=== PATIENT | male | born 1940 | race Caucasian/White ===

== ENCOUNTER 2020-07-16 13:45 | Inpatient (IN) ==
[2020-07-16] MEDS ORDERED: ACETAMINOPHEN 325 MG TABLET PO PRN (16:11)
[2020-07-16] MEDS ORDERED: diphenhydrAMINE CAP 25 MG CAPSULE PO PRN (16:11)
[2020-07-16] MEDS ORDERED: SIMETHICONE CHEW 125 MG TABLET PO PRN (16:11)
[2020-07-16] MEDS ORDERED: DOCUSATE SODIUM 100 MG CAPSULE PO PRN (16:11)
[2020-07-16] MEDS ORDERED: MAGNESIUM SULF RIDER 2 GM in PREMIX 1 EACH IV PRN ×2 (16:11→16:17)
[2020-07-16] MEDS ORDERED: MORPHINE 4 MG/1 ML VIAL IV PRN (16:11)
[2020-07-16] MEDS ORDERED: ONDANSETRON 4 MG/2 ML VIAL IV PRN (16:11)
[2020-07-16] MEDS ORDERED: MAGNESIUM SULF RIDER 4 GM in PREMIX 1 EACH IV PRN (16:11)
[2020-07-16] MEDS ORDERED: ZALEPLON 5 MG CAPSULE PO PRN (16:11)
[2020-07-16] MEDS ORDERED: POTASSIUM CHLORIDE RIDER 10 MEQ in PREMIX 1 EACH IV PRN (16:17)
[2020-07-16 16:35] LABS: Basophils % 0.2 % (0.0-0.8); Eosinophils # 0.4 10*3/uL (0.0-0.87); Eosinophils % 4.5 % (0.00-10.9); Hematocrit 30.9 VOL% (42.0-52.0); Hemoglobin 9.6 GM/DL (14.0-18.0); Immature Granulocytes % 0.7 %; Immature Granulocytes Absolute 0.07 #; Lymphocytes # 1.5 10*3/uL (1.4-4.0); Lymphocytes % 15.5 % (21.2-54.2); Mean Corpuscular HGB Conc 31.1 GM/DL (32-36); Mean Corpuscular Volume 93.6 FL (87-102); Mean Platelet Volume 9.1 FL (9.6-12.0); Neutrophils % 73.1 % (38.7-73.9); Platelet Count 187 T/CUMM (130-400); Red Cell Distribution Width 15.9 % (9.3-17.3); White Blood Count 9.7 T/CUMM (4-12)
[2020-07-16 16:49] LABS: Alanine Aminotransferase 20 U/L (16-61); Albumin 3.1 G/DL (3.4-5.0); Alkaline Phosphatase 105 U/L (45-117); Aspartate Amino Transferase 15 U/L (0-37); Bilirubin,Total < 0.39 MG/DL (0.2-1.0); Blood Urea Nitrogen 44 MG/DL (7-18); Calcium 8.5 MG/DL (8.5-10.1); Carbon Dioxide 22 MMOL/L (21-32); Estimated Glom Filtration Rate 20 ML/MIN; Glucose 113 MG/DL (74-106); Osmolality,Calculated 292.3 MOS/KG (273-304); Potassium 5.7 MMOL/L (3.5-5.1); Sodium 141 MMOL/L (136-145)
[2020-07-16] MEDS: ASPIRIN EC 81 MG TABLET PO SCH (20:36)
[2020-07-16] MEDS: SIMVASTATIN 20 MG TABLET PO SCH (20:36)
[2020-07-16] MEDS: amLODIPine 5 MG TABLET PO SCH (20:37)
[2020-07-17 05:05] LABS: Basophils % 0.1 % (0.0-0.8); Eosinophils # 0.4 10*3/uL (0.0-0.87); Eosinophils % 4.1 % (0.00-10.9); Hematocrit 29.5 VOL% (42.0-52.0); Hemoglobin 9.1 GM/DL (14.0-18.0); Immature Granulocytes % 0.6 %; Immature Granulocytes Absolute 0.05 #; Lymphocytes # 1.6 10*3/uL (1.4-4.0); Lymphocytes % 17.2 % (21.2-54.2); Mean Corpuscular HGB Conc 30.8 GM/DL (32-36); Mean Corpuscular Volume 94.6 FL (87-102); Mean Platelet Volume 9.4 FL (9.6-12.0); Monocytes % 7.1 % (1.7-12.7); Neutrophils % 70.9 % (38.7-73.9); Platelet Count 177 T/CUMM (130-400); Red Blood Count 3.12 MC/CUMM (3.8-5.5)
[2020-07-17 05:22] LABS: Albumin 2.8 G/DL (3.4-5.0); Bilirubin,Total 0.7 MG/DL (0.2-1.0); Calcium 8.7 MG/DL (8.5-10.1); Total Protein 6.5 G/DL (6.4-8.2)
[2020-07-17] MEDS: SODIUM CHLORIDE 0.45% 1,000 ML IV SCH ×2 (06:01→10:22)
[2020-07-17] MEDS ORDERED: diphenhydrAMINE CAP 25 MG CAPSULE PO ONE (07:00)
[2020-07-17] MEDS ORDERED: DIAZEPAM 5 MG TABLET PO ONE (07:00)
[2020-07-17] MEDS: CLOPIDOGREL 75 MG TABLET PO SCH (08:46)
[2020-07-17] MEDS: LEVOTHYROXINE 125 MCG TABLET PO SCH (08:46)
[2020-07-17] MEDS: ISOSORBIDE MONONITRATE 60 MG TABLET PO SCH (08:46)
[2020-07-17] MEDS: PANTOPRAZOLE 40 MG TABLET PO SCH (08:46)
[2020-07-17] MEDS ORDERED: OLMESARTAN 5 MG TABLET PO SCH (09:00)
[2020-07-17 11:27] LABS: Basophils % 0.2 % (0.0-0.8); Eosinophils # 0.3 10*3/uL (0.0-0.87); Eosinophils % 3.8 % (0.00-10.9); Hematocrit 29.6 VOL% (42.0-52.0); Hemoglobin 9.2 GM/DL (14.0-18.0); Immature Granulocytes % 0.7 %; Immature Granulocytes Absolute 0.06 #; Lymphocytes # 1.5 10*3/uL (1.4-4.0); Lymphocytes % 17.7 % (21.2-54.2); Mean Corpuscular HGB Conc 31.1 GM/DL (32-36); Mean Platelet Volume 9.4 FL (9.6-12.0); Monocytes % 5.4 % (1.7-12.7); Neutrophils % 72.2 % (38.7-73.9); Platelet Count 172 T/CUMM (130-400); Red Blood Count 3.15 MC/CUMM (3.8-5.5); Red Cell Distribution Width 15.9 % (9.3-17.3); White Blood Count 8.2 T/CUMM (4-12)
[2020-07-17 12:05] LABS: Eosinophils 3 % (0-10); Hypochromasia Slight; Lymphocytes 14 % (20-55); Microcytosis 1+; Nucleated Red Blood Cells 2 (0-5); Segmented Neutrophils 80 % (50-85); Total Cells Counted 100
[2020-07-17 12:06] LABS: Platelet Estimate Adequate
[2020-07-17 12:13] LABS: % Iron Saturation 11.8 % (18-50); Ferritin 139.1 ng/ml (26-388)
[2020-07-17 12:14] LABS: Folate > 24.0 NG/ML (5.38-24.0); Vitamin B12 506 PG/ML (211-911)
[2020-07-17 12:50] LABS: Bilirubin,Urine Negative (Negative); Blood, Urine Negative (Negative); Glucose,Urine (UA) 50 mg/dL (Negative); Hyaline Casts,Urine 1 /LPF (0-3); Ketones,Urine Negative (Negative); Nitrite,Urine Negative (Negative); Protein,Urine >=500 MG/DL; RBC,Urine 1 /HPF (0-4); Squamous Epithelial Cell,Urine Occasional /HPF (0-10); Urine Appearance CLEAR (Clear); Urine Color Yellow (Yellow); Urine Specific Gravity 1.015 (1.001-1.035); Urine Urobilinogen < 2.0 EU/DL (0.2-1.0); WBC,Urine 1 /HPF (0-6)
[2020-07-17] MEDS: ENOXAPARIN 30 MG/0.3 ML SYRINGE SUBCUT SCH (13:11)
[2020-07-17] MEDS: hydrALAZINE 25 MG TABLET PO SCH ×3 (13:11→20:44)
[2020-07-17] MEDS: ACETYLCYSTEINE 600 MG CAPSULE PO SCH ×2 (15:22→20:44)
[2020-07-17] MEDS: SODIUM BICARB INJ 50 MEQ in SODIUM CHLORIDE 0.45% 1,000 ML IV SCH (15:22)
[2020-07-17] MEDS: amLODIPine 5 MG TABLET PO SCH (20:44)
[2020-07-17] MEDS: ASPIRIN EC 81 MG TABLET PO SCH (20:44)
[2020-07-17] MEDS: SIMVASTATIN 20 MG TABLET PO SCH (20:45)
[2020-07-18 05:15] LABS: Basophils % 0.5 % (0.0-0.8); Eosinophils # 0.5 10*3/uL (0.0-0.87); Eosinophils % 5.8 % (0.00-10.9); Hematocrit 31.4 VOL% (42.0-52.0); Hemoglobin 9.8 GM/DL (14.0-18.0); Immature Granulocytes % 0.8 %; Immature Granulocytes Absolute 0.06 #; Lymphocytes # 1.7 10*3/uL (1.4-4.0); Lymphocytes % 21.8 % (21.2-54.2); Mean Corpuscular HGB Conc 31.2 GM/DL (32-36); Mean Corpuscular Volume 93.5 FL (87-102); Monocytes % 6.5 % (1.7-12.7); Neutrophils % 64.6 % (38.7-73.9); Platelet Count 181 T/CUMM (130-400); Red Blood Count 3.36 MC/CUMM (3.8-5.5); Red Cell Distribution Width 15.9 % (9.3-17.3); White Blood Count 7.9 T/CUMM (4-12)
[2020-07-18 05:37] LABS: Calcium 8.8 MG/DL (8.5-10.1); Osmolality,Calculated 294.8 MOS/KG (273-304); Potassium 5.4 MMOL/L (3.5-5.1)
[2020-07-18] MEDS ORDERED: LORazepam 2 MG/1 ML VIAL IV ONE (08:00)
[2020-07-18] MEDS: hydrALAZINE 25 MG TABLET PO SCH ×3 (08:40→21:45)
[2020-07-18] MEDS: PANTOPRAZOLE 40 MG TABLET PO SCH (08:40)
[2020-07-18] MEDS: ISOSORBIDE MONONITRATE 60 MG TABLET PO SCH (08:40)
[2020-07-18] MEDS: CLOPIDOGREL 75 MG TABLET PO SCH (08:40)
[2020-07-18] MEDS: LEVOTHYROXINE 125 MCG TABLET PO SCH (08:40)
[2020-07-18] MEDS: ACETYLCYSTEINE 600 MG CAPSULE PO SCH ×2 (08:40→21:45)
[2020-07-18] MEDS ORDERED: MAGNESIUM SULF RIDER 2 GM in PREMIX 1 EACH IV PRN (10:53)
[2020-07-18] MEDS ORDERED: POTASSIUM CHLORIDE RIDER 10 MEQ in PREMIX 1 EACH IV PRN (10:53)
[2020-07-18] MEDS: SODIUM BICARB INJ 50 MEQ in SODIUM CHLORIDE 0.45% 1,000 ML IV SCH (11:57)
[2020-07-18] MEDS: ENOXAPARIN 30 MG/0.3 ML SYRINGE SUBCUT SCH (11:58)
[2020-07-18] MEDS: ASPIRIN EC 81 MG TABLET PO SCH (21:45)
[2020-07-18] MEDS: amLODIPine 5 MG TABLET PO SCH (21:45)
[2020-07-18] MEDS: SIMVASTATIN 20 MG TABLET PO SCH (21:49)
[2020-07-19 05:23] LABS: Basophils % 0.4 % (0.0-0.8); Eosinophils # 0.4 10*3/uL (0.0-0.87); Eosinophils % 5.5 % (0.00-10.9); Hematocrit 31.1 VOL% (42.0-52.0); Hemoglobin 9.9 GM/DL (14.0-18.0); Immature Granulocytes % 0.5 %; Immature Granulocytes Absolute 0.04 #; Lymphocytes # 1.5 10*3/uL (1.4-4.0); Lymphocytes % 19.6 % (21.2-54.2); Mean Corpuscular HGB Conc 31.8 GM/DL (32-36); Mean Corpuscular Volume 90.9 FL (87-102); Mean Platelet Volume 9.4 FL (9.6-12.0); Monocytes % 5.8 % (1.7-12.7); Neutrophils % 68.2 % (38.7-73.9); Platelet Count 176 T/CUMM (130-400); Red Blood Count 3.42 MC/CUMM (3.8-5.5); Red Cell Distribution Width 15.9 % (9.3-17.3); White Blood Count 7.4 T/CUMM (4-12)
[2020-07-19 05:48] LABS: Calcium 8.7 MG/DL (8.5-10.1); Potassium 5.1 MMOL/L (3.5-5.1)
[2020-07-19] MEDS: PANTOPRAZOLE 40 MG TABLET PO SCH (09:10)
[2020-07-19] MEDS: CLOPIDOGREL 75 MG TABLET PO SCH (09:10)
[2020-07-19] MEDS: ISOSORBIDE MONONITRATE 60 MG TABLET PO SCH (09:10)
[2020-07-19] MEDS: ACETYLCYSTEINE 600 MG CAPSULE PO SCH ×2 (09:10→20:23)
[2020-07-19] MEDS: LEVOTHYROXINE 125 MCG TABLET PO SCH (09:10)
[2020-07-19] MEDS: hydrALAZINE 25 MG TABLET PO SCH (09:10)
[2020-07-19] MEDS: SODIUM BICARB INJ 50 MEQ in SODIUM CHLORIDE 0.45% 1,000 ML IV SCH (09:11)
[2020-07-19] MEDS: ENOXAPARIN 30 MG/0.3 ML SYRINGE SUBCUT SCH (12:32)
[2020-07-19] MEDS ORDERED: DIAZEPAM 5 MG TABLET PO ONE (13:00)
[2020-07-19] MEDS ORDERED: diphenhydrAMINE CAP 50 MG CAPSULE PO ONE (13:00)
[2020-07-19] MEDS ORDERED: LIDOCAINE 1% 20 ML VIAL ONE (13:52)
[2020-07-19] MEDS ORDERED: HEPARIN/NACL 0.9% 2 UNITS/ML 1,000 ML IV ONE (13:52)
[2020-07-19] MEDS ORDERED: MIDAZOLAM 2 MG/2 ML VIAL ONE ×3 (15:05→15:29)
[2020-07-19] MEDS ORDERED: fentaNYL 100 MCG/2 ML VIAL ONE ×2 (15:05→15:29)
[2020-07-19] MEDS ORDERED: NITROGLYCERIN SL 0.4 MG TABLET SL PRN (15:55)
[2020-07-19] MEDS: ASPIRIN EC 81 MG TABLET PO SCH (20:23)
[2020-07-19] MEDS: SIMVASTATIN 20 MG TABLET PO SCH (20:23)
[2020-07-19] MEDS: amLODIPine 5 MG TABLET PO SCH (20:23)
[2020-07-20 06:19] LABS: Basophils % 0.4 % (0.0-0.8); Eosinophils # 0.4 10*3/uL (0.0-0.87); Eosinophils % 5.7 % (0.00-10.9); Hematocrit 31.4 VOL% (42.0-52.0); Hemoglobin 10.1 GM/DL (14.0-18.0); Immature Granulocytes % 0.4 %; Immature Granulocytes Absolute 0.03 #; Lymphocytes # 1.3 10*3/uL (1.4-4.0); Mean Corpuscular HGB Conc 32.2 GM/DL (32-36); Mean Corpuscular Volume 91.3 FL (87-102); Mean Platelet Volume 9.6 FL (9.6-12.0); Monocytes % 7.1 % (1.7-12.7); Neutrophils % 69.4 % (38.7-73.9); Platelet Count 176 T/CUMM (130-400); Red Blood Count 3.44 MC/CUMM (3.8-5.5); Red Cell Distribution Width 15.9 % (9.3-17.3); White Blood Count 7.7 T/CUMM (4-12)
[2020-07-20 07:23] LABS: Calcium 8.8 MG/DL (8.5-10.1)
[2020-07-20] MEDS: LEVOTHYROXINE 125 MCG TABLET PO SCH (07:41)
[2020-07-20] MEDS: SODIUM BICARB INJ 50 MEQ in SODIUM CHLORIDE 0.45% 1,000 ML IV SCH (07:41)
[2020-07-20 07:53] VITALS: BP 147/68
[2020-07-20] MEDS: ISOSORBIDE MONONITRATE 60 MG TABLET PO SCH (08:35)
[2020-07-20] MEDS: PANTOPRAZOLE 40 MG TABLET PO SCH (08:36)
[2020-07-20] MEDS: CLOPIDOGREL 75 MG TABLET PO SCH (08:36)
[2020-07-20] MEDS: ACETYLCYSTEINE 600 MG CAPSULE PO SCH (08:36)
== END 2020-07-20 10:50 | disposition home or self-care (01) | DRG 287 ==
LOC: INTOOBSV 15:34 → N.TELES 15:34
PROVIDERS: ADMIT Internal Medicine Cardiovascular Disease; ATTEND Internal Medicine Cardiovascular Disease

== ENCOUNTER 2021-04-28 20:01 | Inpatient (IN) ==
[2021-04-28 20:49] LABS: Basophils % 0.3 % (0.0-0.8); Eosinophils # 0.3 10*3/uL (0.0-0.87); Eosinophils % 1.8 % (0.00-10.9); Hematocrit 27.1 VOL% (42.0-52.0); Hemoglobin 8.4 GM/DL (14.0-18.0); Immature Granulocytes % 0.7 %; Lymphocytes # 0.7 10*3/uL (1.4-4.0); Lymphocytes % 5.4 % (21.2-54.2); Mean Corpuscular Volume 90.9 FL (87-102); Monocytes % 4.6 % (1.7-12.7); NRBC # 0.02 10*3/uL; Neutrophils % 87.2 % (38.7-73.9); Platelet Count 262 T/CUMM (130-400); Red Blood Count 2.98 MC/CUMM (3.8-5.5); Red Cell Distribution Width 14.4 % (9.3-17.3); White Blood Count 13.6 T/CUMM (4-12)
[2021-04-28 21:05] LABS: PT Patient Result 11.3 SECS (10.5-12.0); Partial Thromboplastin Time 26.9 SECS (23.8-32.1)
[2021-04-28 21:06] LABS: Calcium 8.1 MG/DL (8.5-10.1); Osmolality,Calculated 299.1 MOS/KG (273-304); Potassium 4.7 MMOL/L (3.5-5.1)
[2021-04-28] MEDS ORDERED: NICOTINE 21 MG/24 HR PATCH TRANSDERM PRN (23:13)
[2021-04-28] MEDS ORDERED: guaiFENesin/DM ER 600-30 MG TABLET PO PRN (23:13)
[2021-04-28] MEDS ORDERED: DEXTROSE 10% 250 ML BAG IV PRN (23:13)
[2021-04-28] MEDS ORDERED: hydrALAZINE 20 MG/1 ML VIAL IV PRN (23:13)
[2021-04-28] MEDS ORDERED: MORPHINE 2 MG/1 ML SYRINGE IV PRN (23:13)
[2021-04-28] MEDS ORDERED: GLUCAGON 1 MG VIAL IM PRN (23:13)
[2021-04-28] MEDS: SODIUM CHLORIDE 0.9% 1,000 ML IV SCH (23:40)
[2021-04-28] MEDS: ONDANSETRON 4 MG/2 ML VIAL IV PRN (23:42)
[2021-04-29 00:18] LABS: Bilirubin,Urine Negative (Negative); Blood, Urine Small mg/dL (Negative); Glucose,Urine (UA) 50 mg/dL (Negative); Hyaline Casts,Urine 1 /LPF (0-3); Ketones,Urine Negative (Negative); Mucus,Urine Occasional /LPF (Occasional); Nitrite,Urine Negative (Negative); Protein,Urine >=500 MG/DL; RBC,Urine 25 /HPF (0-4); Squamous Epithelial Cell,Urine Occasional /HPF (0-10); Urine Appearance Slightly Hazy (Clear); Urine Color Yellow (Yellow); Urine Specific Gravity 1.019 (1.001-1.035); Urine Urobilinogen < 2.0 EU/DL (<2.0)
[2021-04-29] MEDS: ACETAMINOPHEN 325 MG TABLET PO PRN ×2 (05:00→21:05)
[2021-04-29 06:03] LABS: Basophils % 0.2 % (0.0-0.8); Eosinophils % 0.1 % (0.00-10.9); Hematocrit 24.8 VOL% (42.0-52.0); Hemoglobin 7.9 GM/DL (14.0-18.0); Immature Granulocytes % 0.5 %; Immature Granulocytes Absolute 0.05 #; Lymphocytes # 0.8 10*3/uL (1.4-4.0); Lymphocytes % 7.5 % (21.2-54.2); Mean Corpuscular HGB Conc 31.9 GM/DL (32-36); Mean Corpuscular Volume 90.5 FL (87-102); Mean Platelet Volume 9.2 FL (9.6-12.0); Neutrophils % 84.7 % (38.7-73.9); Platelet Count 251 T/CUMM (130-400); Red Blood Count 2.74 MC/CUMM (3.8-5.5); Red Cell Distribution Width 14.5 % (9.3-17.3); White Blood Count 10.7 T/CUMM (4-12)
[2021-04-29 06:31] LABS: Albumin 2.5 G/DL (3.4-5.0); Bilirubin,Total 0.6 MG/DL (0.20-1.00); Calcium 8.3 MG/DL (8.5-10.1); Potassium 5.1 MMOL/L (3.5-5.1); Total Protein 6.4 G/DL (6.4-8.2)
[2021-04-29] MEDS ORDERED: MORPHINE 2 MG/1 ML SYRINGE IV PRN (07:28)
[2021-04-29] MEDS: MORPHINE 2 MG/1 ML SYRINGE IV PRN ×3 (08:01→20:00)
[2021-04-29] MEDS: PANTOPRAZOLE 40 MG TABLET PO SCH (08:01)
[2021-04-29] MEDS: cefTRIAXone 1,000 MG in SODIUM CHLORIDE 0.9% 100 ML IV SCH (08:02)
[2021-04-29] MEDS: AZITHROMYCIN INJ 500 MG in SODIUM CHLORIDE 0.9% 250 ML IV SCH (09:15)
[2021-04-29] MEDS ORDERED: NITROGLYCERIN SL 0.4 MG TABLET SL PRN (09:39)
[2021-04-29] MEDS: ISOSORBIDE MONONITRATE 60 MG TABLET PO SCH (10:25)
[2021-04-29] MEDS: ASPIRIN EC 81 MG TABLET PO SCH (15:00)
[2021-04-29] MEDS: SODIUM CHLORIDE 0.9% 1,000 ML IV SCH (17:50)
[2021-04-29] MEDS ORDERED: ASPIRIN EC 81 MG TABLET PO SCH (21:00)
[2021-04-29] MEDS: SIMVASTATIN 20 MG TABLET PO SCH (21:05)
[2021-04-29] MEDS: ZALEPLON 5 MG CAPSULE PO PRN ×2 (21:05→23:07)
[2021-04-29] MEDS: amLODIPine 5 MG TABLET PO SCH (21:05)
[2021-04-29] MEDS: DEXAMETHASONE 4 MG TABLET PO SCH (21:05)
[2021-04-30 05:25] LABS: Basophils % 0.1 % (0.0-0.8); Hemoglobin 7.5 GM/DL (14.0-18.0); Immature Granulocytes % 0.7 %; Lymphocytes # 0.7 10*3/uL (1.4-4.0); Lymphocytes % 4.7 % (21.2-54.2); Mean Corpuscular HGB Conc 31.3 GM/DL (32-36); Mean Corpuscular Volume 91.6 FL (87-102); Mean Platelet Volume 9.3 FL (9.6-12.0); Monocytes % 5.8 % (1.7-12.7); Neutrophils % 88.7 % (38.7-73.9); Platelet Count 225 T/CUMM (130-400); Red Blood Count 2.62 MC/CUMM (3.8-5.5); Red Cell Distribution Width 14.4 % (9.3-17.3); White Blood Count 13.7 T/CUMM (4-12)
[2021-04-30 05:42] LABS: Folate 9.7 NG/ML (5.38-24.0)
[2021-04-30 05:49] LABS: Calcium 8.7 MG/DL (8.5-10.1); Osmolality,Calculated 294.3 MOS/KG (273-304); Potassium 4.9 MMOL/L (3.5-5.1)
[2021-04-30 05:50] LABS: Calcium 8.7 MG/DL (8.5-10.1); Osmolality,Calculated 294.3 MOS/KG (273-304); Potassium 4.9 MMOL/L (3.5-5.1)
[2021-04-30 05:51] LABS: % Iron Saturation 5.9 % (18-50)
[2021-04-30 05:54] LABS: Hypochromia 1+; Lymphocytes 4 % (20-55); Microcytosis 1+; Platelet Estimate Adequate; Segmented Neutrophils 89 % (50-85); Total Cells Counted 100
[2021-04-30] MEDS: SODIUM CHLORIDE 0.9% 1,000 ML IV SCH ×2 (06:38→20:38)
[2021-04-30] MEDS: cefTRIAXone 1,000 MG in SODIUM CHLORIDE 0.9% 100 ML IV SCH (06:38)
[2021-04-30] MEDS: AZITHROMYCIN INJ 500 MG in SODIUM CHLORIDE 0.9% 250 ML IV SCH (08:49)
[2021-04-30] MEDS: MORPHINE 2 MG/1 ML SYRINGE IV PRN ×3 (08:51→23:00)
[2021-04-30] MEDS: ISOSORBIDE MONONITRATE 60 MG TABLET PO SCH (08:51)
[2021-04-30] MEDS: ASPIRIN EC 81 MG TABLET PO SCH (08:52)
[2021-04-30] MEDS: DEXAMETHASONE 4 MG TABLET PO SCH ×2 (08:52→20:37)
[2021-04-30] MEDS: PANTOPRAZOLE 40 MG TABLET PO SCH (08:52)
[2021-04-30] MEDS ORDERED: ASPIRIN EC 81 MG TABLET PO SCH (09:00)
[2021-04-30 11:51] LABS: Basophils % 0.1 % (0.0-0.8); Hemoglobin 7.2 GM/DL (14.0-18.0); Immature Granulocytes % 0.8 %; Immature Granulocytes Absolute 0.12 #; Lymphocytes # 0.8 10*3/uL (1.4-4.0); Lymphocytes % 5.4 % (21.2-54.2); Mean Corpuscular HGB Conc 31.3 GM/DL (32-36); Mean Corpuscular Volume 91.3 FL (87-102); Mean Platelet Volume 9.3 FL (9.6-12.0); Monocytes % 6.6 % (1.7-12.7); Neutrophils % 87.1 % (38.7-73.9); Platelet Count 240 T/CUMM (130-400); Red Blood Count 2.52 MC/CUMM (3.8-5.5); Red Cell Distribution Width 14.4 % (9.3-17.3); White Blood Count 14.4 T/CUMM (4-12)
[2021-04-30] MEDS: FERROUS SULFATE 325 MG TABLET PO SCH ×2 (12:04→16:15)
[2021-04-30 12:59] LABS: Sedimentation Rate-Westergren 135 MM/HR (0-20)
[2021-04-30] MEDS ORDERED: fentaNYL 25 MCG/HR PATCH TRANSDERM SCH (13:00)
[2021-04-30 13:07] LABS: Folate 6.63 NG/ML (5.38-24.0); Vitamin B12 232 PG/ML (211-911)
[2021-04-30] MEDS: clonazePAM 0.5 MG TABLET PO SCH ×2 (15:50→20:37)
[2021-04-30] MEDS: SIMVASTATIN 20 MG TABLET PO SCH (20:37)
[2021-04-30] MEDS: ZALEPLON 5 MG CAPSULE PO PRN (23:00)
[2021-05-01 07:19] LABS: Basophils % 0.1 % (0.0-0.8); Hematocrit 20.2 VOL% (42.0-52.0); Immature Granulocytes % 0.6 %; Immature Granulocytes Absolute 0.08 #; Lymphocytes # 0.6 10*3/uL (1.4-4.0); Lymphocytes % 4.3 % (21.2-54.2); Mean Corpuscular HGB Conc 31.7 GM/DL (32-36); Mean Corpuscular Volume 90.2 FL (87-102); Mean Platelet Volume 9.4 FL (9.6-12.0); Platelet Count 268 T/CUMM (130-400); Red Blood Count 2.24 MC/CUMM (3.8-5.5); Red Cell Distribution Width 14.2 % (9.3-17.3); White Blood Count 13.8 T/CUMM (4-12)
[2021-05-01 07:24] LABS: Hemoglobin 6.4 GM/DL (14.0-18.0)
[2021-05-01 07:27] LABS: Calcium 8.2 MG/DL (8.5-10.1); Osmolality,Calculated 301.1 MOS/KG (273-304); Potassium 4.9 MMOL/L (3.5-5.1)
[2021-05-01 07:28] LABS: Eosinophils 1 % (0-10); Lymphocytes 4 % (20-55); Platelet Estimate Adequate; Segmented Neutrophils 94 % (50-85); Total Cells Counted 100
[2021-05-01 07:29] LABS: Hypochromia 1+; Microcytosis 1+
[2021-05-01] MEDS: DEXAMETHASONE 4 MG TABLET PO SCH ×2 (09:14→21:02)
[2021-05-01] MEDS: ASPIRIN EC 81 MG TABLET PO SCH (09:14)
[2021-05-01] MEDS: clonazePAM 0.5 MG TABLET PO SCH ×3 (09:14→21:02)
[2021-05-01] MEDS: FERROUS SULFATE 325 MG TABLET PO SCH ×2 (09:14→16:57)
[2021-05-01] MEDS: cefTRIAXone 1,000 MG in SODIUM CHLORIDE 0.9% 100 ML IV SCH (09:15)
[2021-05-01] MEDS: PANTOPRAZOLE 40 MG TABLET PO SCH (09:15)
[2021-05-01] MEDS: AZITHROMYCIN INJ 500 MG in SODIUM CHLORIDE 0.9% 250 ML IV SCH (09:19)
[2021-05-01] MEDS: MORPHINE 2 MG/1 ML SYRINGE IV PRN (09:20)
[2021-05-01] MEDS: SODIUM CHLORIDE 0.9% 1,000 ML IV SCH (09:22)
[2021-05-01] MEDS ORDERED: SODIUM CHLORIDE 0.9% 1,000 ML IV PRN ×2 (12:07→15:07)
[2021-05-01] MEDS: fentaNYL 50 MCG/HR PATCH TRANSDERM SCH (13:54)
[2021-05-01] MEDS: HYDROmorphone 2 MG/1 ML VIAL IV PRN (16:06)
[2021-05-01] MEDS: SIMVASTATIN 20 MG TABLET PO SCH (21:02)
[2021-05-01] MEDS: ZALEPLON 5 MG CAPSULE PO PRN (21:03)
[2021-05-02] MEDS: SODIUM CHLORIDE 0.9% 1,000 ML IV SCH ×2 (03:25→13:55)
[2021-05-02 05:08] LABS: Hematocrit 27.8 VOL% (42.0-52.0); Hemoglobin 8.6 GM/DL (14.0-18.0); Immature Granulocytes % 1.3 %; Immature Granulocytes Absolute 0.11 #; Lymphocytes # 0.3 10*3/uL (1.4-4.0); Lymphocytes % 3.6 % (21.2-54.2); Mean Corpuscular HGB Conc 30.9 GM/DL (32-36); Mean Corpuscular Volume 92.4 FL (87-102); Mean Platelet Volume 9.5 FL (9.6-12.0); Monocytes % 3.3 % (1.7-12.7); Neutrophils % 91.8 % (38.7-73.9); Platelet Count 294 T/CUMM (130-400); Red Blood Count 3.01 MC/CUMM (3.8-5.5); White Blood Count 8.7 T/CUMM (4-12)
[2021-05-02 05:43] LABS: Osmolality,Calculated 306.1 MOS/KG (273-304)
[2021-05-02 06:06] LABS: Hypochromia Slight; Lymphocytes 2 % (20-55); Microcytosis Slight; Nucleated Red Blood Cells 1 (0-5); Platelet Estimate Adequate; Segmented Neutrophils 96 % (50-85); Total Cells Counted 100
[2021-05-02] MEDS: cefTRIAXone 1,000 MG in SODIUM CHLORIDE 0.9% 100 ML IV SCH (07:50)
[2021-05-02] MEDS ORDERED: SODIUM CHLORIDE 0.9% 250 ML IV ONE (08:44)
[2021-05-02] MEDS: clonazePAM 0.5 MG TABLET PO SCH ×3 (09:04→20:50)
[2021-05-02] MEDS: FERROUS SULFATE 325 MG TABLET PO SCH ×2 (09:04→16:00)
[2021-05-02] MEDS: PANTOPRAZOLE 40 MG TABLET PO SCH (09:04)
[2021-05-02] MEDS: DEXAMETHASONE 4 MG TABLET PO SCH ×2 (09:04→20:50)
[2021-05-02] MEDS: ASPIRIN EC 81 MG TABLET PO SCH (09:06)
[2021-05-02] MEDS: HYDROmorphone 2 MG/1 ML VIAL IV PRN ×4 (09:06→20:50)
[2021-05-02] MEDS ORDERED: LACTULOSE 20 GM/30 ML UDCUP PO PRN (09:06)
[2021-05-02] MEDS: AZITHROMYCIN INJ 500 MG in SODIUM CHLORIDE 0.9% 250 ML IV SCH (09:20)
[2021-05-02] MEDS: POLYETHYLENE GLYCOL POWDER 17 GM PACK PO SCH (15:40)
[2021-05-02] MEDS: DOCUSATE SODIUM 100 MG/10 ML UDCUP PO SCH ×2 (15:40→20:50)
[2021-05-02] MEDS: SIMVASTATIN 20 MG TABLET PO SCH (20:50)
[2021-05-03] MEDS: HYDROmorphone 2 MG/1 ML VIAL IV PRN ×3 (04:08→20:56)
[2021-05-03] MEDS: SODIUM CHLORIDE 0.9% 1,000 ML IV SCH ×2 (04:11→20:58)
[2021-05-03] MEDS: PANTOPRAZOLE 40 MG TABLET PO SCH (09:33)
[2021-05-03] MEDS: FERROUS SULFATE 325 MG TABLET PO SCH ×2 (09:33→17:03)
[2021-05-03] MEDS: DEXAMETHASONE 4 MG TABLET PO SCH ×2 (09:33→20:56)
[2021-05-03] MEDS: cefTRIAXone 1,000 MG in SODIUM CHLORIDE 0.9% 100 ML IV SCH (09:33)
[2021-05-03] MEDS: clonazePAM 0.5 MG TABLET PO SCH ×3 (09:33→20:56)
[2021-05-03] MEDS: DOCUSATE SODIUM 100 MG/10 ML UDCUP PO SCH ×2 (09:33→20:56)
[2021-05-03] MEDS: ASPIRIN EC 81 MG TABLET PO SCH (09:33)
[2021-05-03] MEDS: POLYETHYLENE GLYCOL POWDER 17 GM PACK PO SCH (09:35)
[2021-05-03] MEDS: AZITHROMYCIN INJ 500 MG in SODIUM CHLORIDE 0.9% 250 ML IV SCH (10:31)
[2021-05-03] MEDS: SIMVASTATIN 20 MG TABLET PO SCH (20:56)
[2021-05-03] MEDS: amLODIPine 5 MG TABLET PO SCH (20:56)
[2021-05-03] MEDS: ZALEPLON 5 MG CAPSULE PO PRN (22:32)
[2021-05-04] MEDS: HYDROmorphone 2 MG/1 ML VIAL IV PRN ×4 (06:41→20:42)
[2021-05-04] MEDS: ONDANSETRON 4 MG/2 ML VIAL IV PRN (07:46)
[2021-05-04] MEDS: fentaNYL 50 MCG/HR PATCH TRANSDERM SCH (10:32)
[2021-05-04] MEDS: AZITHROMYCIN INJ 500 MG in SODIUM CHLORIDE 0.9% 250 ML IV SCH (10:33)
[2021-05-04] MEDS: PANTOPRAZOLE 40 MG TABLET PO SCH (10:33)
[2021-05-04] MEDS: POLYETHYLENE GLYCOL POWDER 17 GM PACK PO SCH (10:33)
[2021-05-04] MEDS: DOCUSATE SODIUM 100 MG/10 ML UDCUP PO SCH ×3 (10:33→20:37)
[2021-05-04] MEDS: ASPIRIN EC 81 MG TABLET PO SCH (10:34)
[2021-05-04] MEDS: FERROUS SULFATE 325 MG TABLET PO SCH ×2 (10:34→17:21)
[2021-05-04] MEDS: clonazePAM 0.5 MG TABLET PO SCH ×3 (10:34→20:37)
[2021-05-04] MEDS: DEXAMETHASONE 4 MG TABLET PO SCH ×2 (10:34→20:38)
[2021-05-04] MEDS: cefTRIAXone 1,000 MG in SODIUM CHLORIDE 0.9% 100 ML IV SCH (12:07)
[2021-05-04] MEDS: SODIUM CHLORIDE 0.9% 1,000 ML IV SCH (15:01)
[2021-05-04] MEDS: LIDOCAINE 5% PATCH TRANSDERM SCH (15:02)
[2021-05-04] MEDS: SIMVASTATIN 20 MG TABLET PO SCH (20:38)
[2021-05-04] MEDS: amLODIPine 5 MG TABLET PO SCH (20:38)
[2021-05-05] MEDS: HYDROmorphone 2 MG/1 ML VIAL IV PRN ×5 (04:28→21:27)
[2021-05-05] MEDS: SODIUM CHLORIDE 0.9% 1,000 ML IV SCH ×2 (04:32→21:38)
[2021-05-05 05:54] LABS: Basophils % 0.1 % (0.0-0.8); Hematocrit 29.5 VOL% (42.0-52.0); Hemoglobin 9.4 GM/DL (14.0-18.0); Immature Granulocytes Absolute 0.43 #; Lymphocytes # 0.4 10*3/uL (1.4-4.0); Lymphocytes % 4.3 % (21.2-54.2); Mean Corpuscular HGB Conc 31.9 GM/DL (32-36); Mean Corpuscular Volume 91.3 FL (87-102); Mean Platelet Volume 8.7 FL (9.6-12.0); Monocytes % 6.4 % (1.7-12.7); Neutrophils % 84.2 % (38.7-73.9); Platelet Count 387 T/CUMM (130-400); Red Blood Count 3.23 MC/CUMM (3.8-5.5); Red Cell Distribution Width 14.1 % (9.3-17.3); White Blood Count 8.6 T/CUMM (4-12)
[2021-05-05 06:14] LABS: Calcium 7.3 MG/DL (8.5-10.1); Osmolality,Calculated 308.7 MOS/KG (273-304); Potassium 5.4 MMOL/L (3.5-5.1)
[2021-05-05 06:16] LABS: Band Neutrophils 1 % (0-10); Hypochromia 1+; Lymphocytes 2 % (20-55); Microcytosis 1+; Segmented Neutrophils 93 % (50-85); Total Cells Counted 100
[2021-05-05 06:17] LABS: Ovalocytes Slight; Tear Drop Cells Slight
[2021-05-05] MEDS: cefTRIAXone 1,000 MG in SODIUM CHLORIDE 0.9% 100 ML IV SCH (08:10)
[2021-05-05] MEDS ORDERED: HYDROmorphone 2 MG/1 ML VIAL IV ONE (08:30)
[2021-05-05] MEDS ORDERED: SODIUM POLYSTYRENE SULFATE 15 GM/60 ML BOTTLE PO STA (09:40)
[2021-05-05] MEDS: clonazePAM 0.5 MG TABLET PO SCH ×3 (12:33→21:24)
[2021-05-05] MEDS: ASPIRIN EC 81 MG TABLET PO SCH (12:33)
[2021-05-05] MEDS: DOCUSATE SODIUM 100 MG/10 ML UDCUP PO SCH ×2 (12:33→21:24)
[2021-05-05] MEDS: FERROUS SULFATE 325 MG TABLET PO SCH ×2 (12:33→17:34)
[2021-05-05] MEDS: DEXAMETHASONE 4 MG TABLET PO SCH ×2 (12:33→21:24)
[2021-05-05] MEDS: ISOSORBIDE MONONITRATE 60 MG TABLET PO SCH (12:33)
[2021-05-05] MEDS: POLYETHYLENE GLYCOL POWDER 17 GM PACK PO SCH (12:34)
[2021-05-05] MEDS: LIDOCAINE 5% PATCH TRANSDERM SCH (12:34)
[2021-05-05] MEDS: PANTOPRAZOLE 40 MG TABLET PO SCH (12:34)
[2021-05-05] MEDS: AZITHROMYCIN INJ 500 MG in SODIUM CHLORIDE 0.9% 250 ML IV SCH (14:16)
[2021-05-05] MEDS ORDERED: DOCUSATE SODIUM 100 MG CAPSULE PO SCH (21:00)
[2021-05-05] MEDS: amLODIPine 5 MG TABLET PO SCH (21:25)
[2021-05-05] MEDS: SIMVASTATIN 20 MG TABLET PO SCH (21:27)
[2021-05-05] MEDS: ZALEPLON 5 MG CAPSULE PO PRN (23:29)
[2021-05-06] MEDS: HYDROmorphone 2 MG/1 ML VIAL IV PRN ×5 (01:58→22:16)
[2021-05-06 05:09] LABS: Basophils % 0.2 % (0.0-0.8); Hematocrit 29.1 VOL% (42.0-52.0); Hemoglobin 9.2 GM/DL (14.0-18.0); Immature Granulocytes % 4.3 %; Immature Granulocytes Absolute 0.53 #; Lymphocytes # 0.4 10*3/uL (1.4-4.0); Lymphocytes % 3.5 % (21.2-54.2); Mean Corpuscular HGB Conc 31.6 GM/DL (32-36); Mean Corpuscular Volume 91.2 FL (87-102); Monocytes % 4.8 % (1.7-12.7); Neutrophils % 87.2 % (38.7-73.9); Platelet Count 430 T/CUMM (130-400); Red Blood Count 3.19 MC/CUMM (3.8-5.5); Red Cell Distribution Width 14.2 % (9.3-17.3); White Blood Count 12.2 T/CUMM (4-12)
[2021-05-06 05:33] LABS: Calcium 7.4 MG/DL (8.5-10.1); Hypochromia 1+; Lymphocytes 2 % (20-55); Microcytosis 1+; Osmolality,Calculated 306.8 MOS/KG (273-304); Ovalocytes Slight; Potassium 4.9 MMOL/L (3.5-5.1); Segmented Neutrophils 93 % (50-85); Total Cells Counted 100
[2021-05-06 05:34] LABS: Platelet Estimate Increased
[2021-05-06] MEDS: SODIUM CHLORIDE 0.9% 1,000 ML IV SCH (06:00)
[2021-05-06] MEDS: ASPIRIN EC 81 MG TABLET PO SCH (09:21)
[2021-05-06] MEDS: DOCUSATE SODIUM 100 MG/10 ML UDCUP PO SCH ×2 (09:21→20:15)
[2021-05-06] MEDS: ISOSORBIDE MONONITRATE 60 MG TABLET PO SCH (09:22)
[2021-05-06] MEDS: PANTOPRAZOLE 40 MG TABLET PO SCH (09:22)
[2021-05-06] MEDS: FERROUS SULFATE 325 MG TABLET PO SCH ×2 (09:22→16:59)
[2021-05-06] MEDS: clonazePAM 0.5 MG TABLET PO SCH ×3 (09:22→20:15)
[2021-05-06] MEDS: LIDOCAINE 5% PATCH TRANSDERM SCH (09:41)
[2021-05-06] MEDS: DEXAMETHASONE 4 MG TABLET PO SCH ×2 (09:41→20:15)
[2021-05-06] MEDS: POLYETHYLENE GLYCOL POWDER 17 GM PACK PO SCH (09:41)
[2021-05-06] MEDS: ONDANSETRON 4 MG/2 ML VIAL IV PRN (16:31)
[2021-05-06] MEDS: SIMVASTATIN 20 MG TABLET PO SCH (20:15)
[2021-05-06] MEDS: amLODIPine 5 MG TABLET PO SCH (20:15)
[2021-05-07] MEDS: HYDROmorphone 2 MG/1 ML VIAL IV PRN ×6 (02:30→22:04)
[2021-05-07] MEDS: FERROUS SULFATE 325 MG TABLET PO SCH ×2 (09:23→16:26)
[2021-05-07] MEDS: ISOSORBIDE MONONITRATE 60 MG TABLET PO SCH (09:23)
[2021-05-07] MEDS: ASPIRIN EC 81 MG TABLET PO SCH (09:23)
[2021-05-07] MEDS: DEXAMETHASONE 4 MG TABLET PO SCH ×2 (09:23→21:16)
[2021-05-07] MEDS: PANTOPRAZOLE 40 MG TABLET PO SCH (09:23)
[2021-05-07] MEDS: LIDOCAINE 5% PATCH TRANSDERM SCH (09:23)
[2021-05-07] MEDS: clonazePAM 0.5 MG TABLET PO SCH ×3 (09:35→21:15)
[2021-05-07] MEDS: fentaNYL 75 MCG/HR PATCH TRANSDERM SCH (09:36)
[2021-05-07] MEDS: DOCUSATE SODIUM 100 MG/10 ML UDCUP PO SCH ×2 (09:39→21:15)
[2021-05-07] MEDS: POLYETHYLENE GLYCOL POWDER 17 GM PACK PO SCH (09:39)
[2021-05-07] MEDS: ACETAMINOPHEN 325 MG TABLET PO PRN (14:33)
[2021-05-07] MEDS: FUROSEMIDE 40 MG/4 ML VIAL IV SCH (15:42)
[2021-05-07] MEDS: diphenhydrAMINE CAP 25 MG CAPSULE PO PRN (21:15)
[2021-05-07] MEDS: amLODIPine 5 MG TABLET PO SCH (21:16)
[2021-05-07] MEDS: SIMVASTATIN 20 MG TABLET PO SCH (21:16)
[2021-05-08] MEDS: HYDROmorphone 2 MG/1 ML VIAL IV PRN ×4 (03:22→19:55)
[2021-05-08 04:46] LABS: Basophils % 0.3 % (0.0-0.8); Eosinophils % 0.3 % (0.00-10.9); Hematocrit 30.3 VOL% (42.0-52.0); Hemoglobin 9.5 GM/DL (14.0-18.0); Immature Granulocytes % 5.7 %; Immature Granulocytes Absolute 0.85 #; Lymphocytes # 0.6 10*3/uL (1.4-4.0); Lymphocytes % 3.9 % (21.2-54.2); Mean Corpuscular HGB Conc 31.4 GM/DL (32-36); Mean Corpuscular Volume 92.4 FL (87-102); Mean Platelet Volume 8.8 FL (9.6-12.0); Monocytes % 5.6 % (1.7-12.7); NRBC # 0.02 10*3/uL; Neutrophils % 84.2 % (38.7-73.9); Platelet Count 465 T/CUMM (130-400); Red Blood Count 3.28 MC/CUMM (3.8-5.5); Red Cell Distribution Width 14.3 % (9.3-17.3)
[2021-05-08 05:01] LABS: Calcium 8.1 MG/DL (8.5-10.1); Osmolality,Calculated 305.3 MOS/KG (273-304); Potassium 5.3 MMOL/L (3.5-5.1)
[2021-05-08 05:13] LABS: Hypochromia 1+; Lymphocytes 3 % (20-55); Microcytosis 1+; Platelet Estimate Adequate; Segmented Neutrophils 89 % (50-85); Total Cells Counted 100
[2021-05-08] MEDS: LIDOCAINE 5% PATCH TRANSDERM SCH (09:06)
[2021-05-08] MEDS: FUROSEMIDE 40 MG/4 ML VIAL IV SCH ×2 (09:06→16:01)
[2021-05-08] MEDS: FERROUS SULFATE 325 MG TABLET PO SCH ×2 (09:07→16:01)
[2021-05-08] MEDS: ASPIRIN EC 81 MG TABLET PO SCH (09:07)
[2021-05-08] MEDS: ISOSORBIDE MONONITRATE 60 MG TABLET PO SCH (09:07)
[2021-05-08] MEDS: PANTOPRAZOLE 40 MG TABLET PO SCH (09:07)
[2021-05-08] MEDS: clonazePAM 0.5 MG TABLET PO SCH ×3 (09:07→20:57)
[2021-05-08] MEDS: DEXAMETHASONE 4 MG TABLET PO SCH ×2 (09:07→20:58)
[2021-05-08] MEDS: DOCUSATE SODIUM 100 MG/10 ML UDCUP PO SCH ×2 (09:43→20:58)
[2021-05-08] MEDS: POLYETHYLENE GLYCOL POWDER 17 GM PACK PO SCH (09:43)
[2021-05-08] MEDS ORDERED: SODIUM POLYSTYRENE SULFATE 15 GM/60 ML BOTTLE PO STA (10:14)
[2021-05-08] MEDS ORDERED: oxyCODONE IR 5 MG TABLET PO ONE (12:13)
[2021-05-08] MEDS: oxyCODONE ER 20 MG TABLET PO SCH (20:57)
[2021-05-08] MEDS: diphenhydrAMINE CAP 25 MG CAPSULE PO PRN (20:57)
[2021-05-08] MEDS: SIMVASTATIN 20 MG TABLET PO SCH (20:57)
[2021-05-08] MEDS: amLODIPine 5 MG TABLET PO SCH (20:58)
[2021-05-09 06:19] LABS: Basophils % 0.2 % (0.0-0.8); Hematocrit 30.1 VOL% (42.0-52.0); Hemoglobin 9.4 GM/DL (14.0-18.0); Immature Granulocytes Absolute 0.81 #; Lymphocytes # 0.6 10*3/uL (1.4-4.0); Lymphocytes % 4.6 % (21.2-54.2); Mean Corpuscular HGB Conc 31.2 GM/DL (32-36); Mean Corpuscular Volume 91.8 FL (87-102); Monocytes % 4.2 % (1.7-12.7); Platelet Count 429 T/CUMM (130-400); Red Blood Count 3.28 MC/CUMM (3.8-5.5); Red Cell Distribution Width 14.3 % (9.3-17.3); White Blood Count 13.6 T/CUMM (4-12)
[2021-05-09 06:35] LABS: Calcium 7.9 MG/DL (8.5-10.1); Potassium 5.4 MMOL/L (3.5-5.1)
[2021-05-09 06:42] LABS: Band Neutrophils 1 % (0-10); Hypochromia 1+; Lymphocytes 1 % (20-55); Microcytosis 1+; Platelet Estimate Adequate; Segmented Neutrophils 97 % (50-85); Total Cells Counted 100
[2021-05-09] MEDS: HYDROmorphone 2 MG/1 ML VIAL IV PRN ×4 (07:20→20:07)
[2021-05-09] MEDS: DOCUSATE SODIUM 100 MG/10 ML UDCUP PO SCH ×2 (09:10→21:59)
[2021-05-09] MEDS ORDERED: SODIUM POLYSTYRENE SULFATE 15 GM/60 ML BOTTLE PO STA (09:11)
[2021-05-09] MEDS: clonazePAM 0.5 MG TABLET PO SCH ×3 (09:11→21:57)
[2021-05-09] MEDS: FERROUS SULFATE 325 MG TABLET PO SCH ×2 (09:12→17:45)
[2021-05-09] MEDS: oxyCODONE ER 20 MG TABLET PO SCH ×2 (09:12→21:57)
[2021-05-09] MEDS: PANTOPRAZOLE 40 MG TABLET PO SCH (09:12)
[2021-05-09] MEDS: ISOSORBIDE MONONITRATE 60 MG TABLET PO SCH (09:12)
[2021-05-09] MEDS: DEXAMETHASONE 4 MG TABLET PO SCH ×2 (09:12→21:57)
[2021-05-09] MEDS: ASPIRIN EC 81 MG TABLET PO SCH (09:13)
[2021-05-09] MEDS: POLYETHYLENE GLYCOL POWDER 17 GM PACK PO SCH (09:13)
[2021-05-09] MEDS: LIDOCAINE 5% PATCH TRANSDERM SCH (09:13)
[2021-05-09] MEDS: FUROSEMIDE 40 MG/4 ML VIAL IV SCH (09:20)
[2021-05-09] MEDS: amLODIPine 5 MG TABLET PO SCH (21:57)
[2021-05-09] MEDS: SIMVASTATIN 20 MG TABLET PO SCH (21:57)
[2021-05-10] MEDS: HYDROmorphone 2 MG/1 ML VIAL IV PRN ×4 (01:41→23:52)
[2021-05-10 05:59] LABS: Basophils % 0.3 % (0.0-0.8); Eosinophils % 0.1 % (0.00-10.9); Hematocrit 30.4 VOL% (42.0-52.0); Hemoglobin 9.5 GM/DL (14.0-18.0); Immature Granulocytes % 6.6 %; Immature Granulocytes Absolute 0.82 #; Lymphocytes # 0.6 10*3/uL (1.4-4.0); Lymphocytes % 4.4 % (21.2-54.2); Mean Corpuscular HGB Conc 31.3 GM/DL (32-36); Mean Corpuscular Volume 91.6 FL (87-102); Monocytes % 4.4 % (1.7-12.7); Neutrophils % 84.2 % (38.7-73.9); Platelet Count 438 T/CUMM (130-400); Red Blood Count 3.32 MC/CUMM (3.8-5.5); Red Cell Distribution Width 14.3 % (9.3-17.3); White Blood Count 12.4 T/CUMM (4-12)
[2021-05-10 06:12] LABS: Calcium 7.7 MG/DL (8.5-10.1); Osmolality,Calculated 303.4 MOS/KG (273-304); Potassium 5.3 MMOL/L (3.5-5.1)
[2021-05-10 06:29] LABS: Hypochromia Slight; Lymphocytes 9 % (20-55); Nucleated Red Blood Cells 1 (0-5); Platelet Estimate Increased; Segmented Neutrophils 88 % (50-85); Total Cells Counted 100
[2021-05-10] MEDS: SODIUM CHLORIDE 0.9% 1,000 ML IV SCH (07:27)
[2021-05-10] MEDS: LIDOCAINE 5% PATCH TRANSDERM SCH (09:09)
[2021-05-10] MEDS: clonazePAM 0.5 MG TABLET PO SCH ×3 (09:09→21:08)
[2021-05-10] MEDS: DEXAMETHASONE 4 MG TABLET PO SCH ×2 (09:09→21:09)
[2021-05-10] MEDS: oxyCODONE ER 20 MG TABLET PO SCH ×2 (09:09→21:09)
[2021-05-10] MEDS: ASPIRIN EC 81 MG TABLET PO SCH (09:09)
[2021-05-10] MEDS: DOCUSATE SODIUM 100 MG/10 ML UDCUP PO SCH ×2 (09:10→21:09)
[2021-05-10] MEDS: ISOSORBIDE MONONITRATE 60 MG TABLET PO SCH (09:10)
[2021-05-10] MEDS: PANTOPRAZOLE 40 MG TABLET PO SCH (09:10)
[2021-05-10] MEDS: POLYETHYLENE GLYCOL POWDER 17 GM PACK PO SCH (09:10)
[2021-05-10] MEDS: FERROUS SULFATE 325 MG TABLET PO SCH ×2 (09:10→16:37)
[2021-05-10] MEDS: fentaNYL 75 MCG/HR PATCH TRANSDERM SCH (09:18)
[2021-05-10] MEDS ORDERED: FUROSEMIDE 40 MG/4 ML VIAL IV ONE (14:39)
[2021-05-10] MEDS ORDERED: SODIUM POLYSTYRENE SULFATE 15 GM/60 ML BOTTLE PO ONE (14:48)
[2021-05-10] MEDS: amLODIPine 5 MG TABLET PO SCH (21:08)
[2021-05-10] MEDS: SIMVASTATIN 20 MG TABLET PO SCH (21:08)
[2021-05-11 05:09] LABS: Basophils % 0.2 % (0.0-0.8); Hematocrit 29.4 VOL% (42.0-52.0); Hemoglobin 9.3 GM/DL (14.0-18.0); Immature Granulocytes % 6.4 %; Immature Granulocytes Absolute 0.84 #; Lymphocytes # 0.7 10*3/uL (1.4-4.0); Mean Corpuscular HGB Conc 31.6 GM/DL (32-36); Mean Corpuscular Volume 91.3 FL (87-102); Mean Platelet Volume 8.8 FL (9.6-12.0); Monocytes % 4.6 % (1.7-12.7); Neutrophils % 83.8 % (38.7-73.9); Platelet Count 379 T/CUMM (130-400); Red Blood Count 3.22 MC/CUMM (3.8-5.5); Red Cell Distribution Width 14.3 % (9.3-17.3); White Blood Count 13.1 T/CUMM (4-12)
[2021-05-11 05:23] LABS: Calcium 7.8 MG/DL (8.5-10.1); Osmolality,Calculated 304.4 MOS/KG (273-304); Potassium 5.2 MMOL/L (3.5-5.1)
[2021-05-11 06:50] LABS: Lymphocytes 4 % (20-55); Segmented Neutrophils 91 % (50-85); Total Cells Counted 100
[2021-05-11 06:51] LABS: Hypochromia Slight; Platelet Estimate Normal; Reactive Lymphocytes Few
[2021-05-11] MEDS: ISOSORBIDE MONONITRATE 60 MG TABLET PO SCH (08:36)
[2021-05-11] MEDS: oxyCODONE ER 20 MG TABLET PO SCH ×2 (08:36→20:29)
[2021-05-11] MEDS: clonazePAM 0.5 MG TABLET PO SCH ×3 (08:36→20:29)
[2021-05-11] MEDS: DEXAMETHASONE 4 MG TABLET PO SCH ×2 (08:37→20:30)
[2021-05-11] MEDS: LIDOCAINE 5% PATCH TRANSDERM SCH (08:37)
[2021-05-11] MEDS: PANTOPRAZOLE 40 MG TABLET PO SCH (08:37)
[2021-05-11] MEDS: FERROUS SULFATE 325 MG TABLET PO SCH ×2 (08:37→18:39)
[2021-05-11] MEDS: ASPIRIN EC 81 MG TABLET PO SCH (08:37)
[2021-05-11] MEDS: DOCUSATE SODIUM 100 MG/10 ML UDCUP PO SCH ×2 (08:37→20:29)
[2021-05-11] MEDS: POLYETHYLENE GLYCOL POWDER 17 GM PACK PO SCH (08:37)
[2021-05-11] MEDS ORDERED: FUROSEMIDE 40 MG/4 ML VIAL IV ONE (10:13)
[2021-05-11] MEDS ORDERED: SODIUM POLYSTYRENE SULFATE 15 GM/60 ML BOTTLE PO ONE (10:14)
[2021-05-11] MEDS ORDERED: MAGNESIUM SULF RIDER 2 GM/50 ML PREMIX IV ONE ×2 (10:14→14:00)
[2021-05-11] MEDS: HYDROmorphone 2 MG/1 ML VIAL IV PRN ×3 (11:19→22:13)
[2021-05-11] MEDS: LEVOTHYROXINE 125 MCG TABLET PO SCH (14:08)
[2021-05-11] MEDS: ENOXAPARIN 40 MG/0.4 ML SYRINGE SUBCUT SCH (16:01)
[2021-05-11] MEDS: SIMVASTATIN 20 MG TABLET PO SCH (20:30)
[2021-05-11] MEDS: GABAPENTIN 300 MG CAPSULE PO SCH (20:30)
[2021-05-11] MEDS: amLODIPine 5 MG TABLET PO SCH (20:30)
[2021-05-11] MEDS: diphenhydrAMINE CAP 25 MG CAPSULE PO PRN (22:12)
[2021-05-12] MEDS: LEVOTHYROXINE 125 MCG TABLET PO SCH (05:41)
[2021-05-12 07:19] LABS: Risk Ratio 2.9; VLDL Cholesterol 41.6 MG/DL
[2021-05-12] MEDS: clonazePAM 0.5 MG TABLET PO SCH ×3 (09:22→20:33)
[2021-05-12] MEDS: oxyCODONE ER 20 MG TABLET PO SCH ×2 (09:22→22:10)
[2021-05-12] MEDS: GABAPENTIN 300 MG CAPSULE PO SCH ×2 (09:23→20:33)
[2021-05-12] MEDS: CLOPIDOGREL 75 MG TABLET PO SCH (09:24)
[2021-05-12] MEDS: ASPIRIN EC 81 MG TABLET PO SCH (09:24)
[2021-05-12] MEDS: DEXAMETHASONE 4 MG TABLET PO SCH ×2 (09:24→20:33)
[2021-05-12] MEDS: FERROUS SULFATE 325 MG TABLET PO SCH ×2 (09:24→19:21)
[2021-05-12] MEDS: ISOSORBIDE MONONITRATE 60 MG TABLET PO SCH (09:24)
[2021-05-12] MEDS: POLYETHYLENE GLYCOL POWDER 17 GM PACK PO SCH (09:24)
[2021-05-12] MEDS: PANTOPRAZOLE 40 MG TABLET PO SCH (09:24)
[2021-05-12] MEDS: LIDOCAINE 5% PATCH TRANSDERM SCH (09:25)
[2021-05-12] MEDS: HYDROmorphone 2 MG/1 ML VIAL IV PRN ×2 (11:05→18:12)
[2021-05-12] MEDS: DOCUSATE SODIUM 100 MG/10 ML UDCUP PO SCH ×2 (11:07→20:32)
[2021-05-12] MEDS: ENOXAPARIN 40 MG/0.4 ML SYRINGE SUBCUT SCH (15:48)
[2021-05-12] MEDS: SIMVASTATIN 20 MG TABLET PO SCH (20:32)
[2021-05-12] MEDS: diphenhydrAMINE CAP 25 MG CAPSULE PO PRN (20:32)
[2021-05-12] MEDS: amLODIPine 5 MG TABLET PO SCH (20:33)
[2021-05-12] MEDS: fentaNYL 75 MCG/HR PATCH TRANSDERM SCH (22:09)
[2021-05-13] MEDS: LEVOTHYROXINE 125 MCG TABLET PO SCH (05:49)
[2021-05-13] MEDS: DOCUSATE SODIUM 100 MG/10 ML UDCUP PO SCH ×2 (08:05→20:31)
[2021-05-13] MEDS: ASPIRIN EC 81 MG TABLET PO SCH (08:06)
[2021-05-13] MEDS: FERROUS SULFATE 325 MG TABLET PO SCH ×2 (08:06→16:29)
[2021-05-13] MEDS: DEXAMETHASONE 4 MG TABLET PO SCH ×2 (08:06→20:31)
[2021-05-13] MEDS: GABAPENTIN 300 MG CAPSULE PO SCH ×2 (08:06→20:31)
[2021-05-13] MEDS: CLOPIDOGREL 75 MG TABLET PO SCH (08:06)
[2021-05-13] MEDS: oxyCODONE ER 20 MG TABLET PO SCH ×2 (08:06→20:31)
[2021-05-13] MEDS: PANTOPRAZOLE 40 MG TABLET PO SCH (08:07)
[2021-05-13] MEDS: clonazePAM 0.5 MG TABLET PO SCH ×3 (08:07→20:30)
[2021-05-13] MEDS: ISOSORBIDE MONONITRATE 60 MG TABLET PO SCH (08:07)
[2021-05-13] MEDS: LIDOCAINE 5% PATCH TRANSDERM SCH ×2 (08:12→08:14)
[2021-05-13] MEDS: POLYETHYLENE GLYCOL POWDER 17 GM PACK PO SCH (08:13)
[2021-05-13] MEDS: HYDROmorphone 2 MG/1 ML VIAL IV PRN (10:07)
[2021-05-13] MEDS: ENOXAPARIN 40 MG/0.4 ML SYRINGE SUBCUT SCH (14:31)
[2021-05-13] MEDS: diphenhydrAMINE CAP 25 MG CAPSULE PO PRN (20:30)
[2021-05-13] MEDS: amLODIPine 5 MG TABLET PO SCH (20:31)
[2021-05-13] MEDS: SIMVASTATIN 20 MG TABLET PO SCH (20:32)
[2021-05-14] MEDS: LEVOTHYROXINE 125 MCG TABLET PO SCH (06:15)
[2021-05-14] MEDS: LIDOCAINE 5% PATCH TRANSDERM SCH (09:07)
[2021-05-14] MEDS: DOCUSATE SODIUM 100 MG/10 ML UDCUP PO SCH ×2 (09:07→20:19)
[2021-05-14] MEDS: FERROUS SULFATE 325 MG TABLET PO SCH ×2 (09:09→16:00)
[2021-05-14] MEDS: DEXAMETHASONE 4 MG TABLET PO SCH ×2 (09:09→20:18)
[2021-05-14] MEDS: ISOSORBIDE MONONITRATE 60 MG TABLET PO SCH (09:09)
[2021-05-14] MEDS: CLOPIDOGREL 75 MG TABLET PO SCH (09:09)
[2021-05-14] MEDS: ASPIRIN EC 81 MG TABLET PO SCH (09:09)
[2021-05-14] MEDS: PANTOPRAZOLE 40 MG TABLET PO SCH (09:09)
[2021-05-14] MEDS: oxyCODONE ER 20 MG TABLET PO SCH ×2 (09:09→20:18)
[2021-05-14] MEDS: CHOLECALCIFEROL 1,000 UNIT TABLET PO SCH (09:09)
[2021-05-14] MEDS: clonazePAM 0.5 MG TABLET PO SCH ×3 (09:09→20:17)
[2021-05-14] MEDS: GABAPENTIN 300 MG CAPSULE PO SCH ×2 (09:09→20:19)
[2021-05-14] MEDS: POLYETHYLENE GLYCOL POWDER 17 GM PACK PO SCH ×2 (09:12→20:19)
[2021-05-14] MEDS: HYDROmorphone 2 MG/1 ML VIAL IV PRN (11:14)
[2021-05-14] MEDS: oxyCODONE/ACETAMINOPHEN 5-325 MG TABLET PO PRN ×2 (12:17→17:36)
[2021-05-14] MEDS: ENOXAPARIN 40 MG/0.4 ML SYRINGE SUBCUT SCH (15:01)
[2021-05-14] MEDS: SIMVASTATIN 20 MG TABLET PO SCH (20:18)
[2021-05-14] MEDS: amLODIPine 5 MG TABLET PO SCH (20:19)
[2021-05-14] MEDS: diphenhydrAMINE CAP 25 MG CAPSULE PO PRN (20:19)
[2021-05-15] MEDS: LEVOTHYROXINE 125 MCG TABLET PO SCH (06:04)
[2021-05-15] MEDS: clonazePAM 0.5 MG TABLET PO SCH ×3 (08:24→20:11)
[2021-05-15] MEDS: oxyCODONE ER 20 MG TABLET PO SCH ×2 (08:24→20:10)
[2021-05-15] MEDS: GABAPENTIN 300 MG CAPSULE PO SCH ×2 (08:24→20:12)
[2021-05-15] MEDS: CLOPIDOGREL 75 MG TABLET PO SCH (08:25)
[2021-05-15] MEDS: ISOSORBIDE MONONITRATE 60 MG TABLET PO SCH (08:25)
[2021-05-15] MEDS: ASPIRIN EC 81 MG TABLET PO SCH (08:25)
[2021-05-15] MEDS: CHOLECALCIFEROL 1,000 UNIT TABLET PO SCH (08:25)
[2021-05-15] MEDS: DEXAMETHASONE 4 MG TABLET PO SCH ×2 (08:25→20:11)
[2021-05-15] MEDS: PANTOPRAZOLE 40 MG TABLET PO SCH (08:25)
[2021-05-15] MEDS: DOCUSATE SODIUM 100 MG/10 ML UDCUP PO SCH ×2 (08:25→20:12)
[2021-05-15] MEDS: FERROUS SULFATE 325 MG TABLET PO SCH ×2 (08:27→17:01)
[2021-05-15] MEDS: POLYETHYLENE GLYCOL POWDER 17 GM PACK PO SCH ×2 (08:27→20:13)
[2021-05-15] MEDS: LIDOCAINE 5% PATCH TRANSDERM SCH (08:27)
[2021-05-15] MEDS ORDERED: FUROSEMIDE 40 MG/4 ML VIAL IV ONE (09:15)
[2021-05-15] MEDS: ENOXAPARIN 40 MG/0.4 ML SYRINGE SUBCUT SCH (14:07)
[2021-05-15] MEDS: oxyCODONE/ACETAMINOPHEN 5-325 MG TABLET PO PRN (15:36)
[2021-05-15] MEDS: amLODIPine 5 MG TABLET PO SCH (20:11)
[2021-05-15] MEDS: SIMVASTATIN 20 MG TABLET PO SCH (20:12)
[2021-05-16 05:12] LABS: Basophils % 0.2 % (0.0-0.8); Eosinophils % 0.1 % (0.00-10.9); Hemoglobin 8.9 GM/DL (14.0-18.0); Immature Granulocytes % 2.6 %; Immature Granulocytes Absolute 0.47 #; Lymphocytes # 0.6 10*3/uL (1.4-4.0); Lymphocytes % 3.6 % (21.2-54.2); Mean Corpuscular HGB Conc 30.7 GM/DL (32-36); Mean Corpuscular Volume 95.4 FL (87-102); Mean Platelet Volume 9.5 FL (9.6-12.0); Monocytes % 4.6 % (1.7-12.7); NRBC # 0.03 10*3/uL; Neutrophils % 88.9 % (38.7-73.9); Platelet Count 261 T/CUMM (130-400); Red Blood Count 3.04 MC/CUMM (3.8-5.5); Red Cell Distribution Width 14.8 % (9.3-17.3); White Blood Count 17.8 T/CUMM (4-12)
[2021-05-16 05:40] LABS: Calcium 7.8 MG/DL (8.5-10.1); Osmolality,Calculated 319.1 MOS/KG (273-304); Potassium 5.2 MMOL/L (3.5-5.1)
[2021-05-16] MEDS: LEVOTHYROXINE 125 MCG TABLET PO SCH (06:08)
[2021-05-16 06:30] LABS: Anisocytosis 1+; Band Neutrophils 6 % (0-10); Lymphocytes 5 % (20-55); Platelet Estimate Normal; Segmented Neutrophils 84 % (50-85); Total Cells Counted 100
[2021-05-16 06:31] LABS: Spherocytes Few
[2021-05-16] MEDS: fentaNYL 75 MCG/HR PATCH TRANSDERM SCH (08:30)
[2021-05-16] MEDS: DEXAMETHASONE 4 MG TABLET PO SCH ×2 (08:31→20:49)
[2021-05-16] MEDS: ASPIRIN EC 81 MG TABLET PO SCH (08:31)
[2021-05-16] MEDS: LIDOCAINE 5% PATCH TRANSDERM SCH (08:31)
[2021-05-16] MEDS: CLOPIDOGREL 75 MG TABLET PO SCH (08:31)
[2021-05-16] MEDS: CHOLECALCIFEROL 1,000 UNIT TABLET PO SCH (08:31)
[2021-05-16] MEDS: clonazePAM 0.5 MG TABLET PO SCH ×3 (08:31→20:49)
[2021-05-16] MEDS: GABAPENTIN 300 MG CAPSULE PO SCH ×2 (08:32→20:49)
[2021-05-16] MEDS: PANTOPRAZOLE 40 MG TABLET PO SCH (08:32)
[2021-05-16] MEDS: ISOSORBIDE MONONITRATE 60 MG TABLET PO SCH (08:32)
[2021-05-16] MEDS: FERROUS SULFATE 325 MG TABLET PO SCH ×2 (08:32→16:13)
[2021-05-16] MEDS: oxyCODONE ER 20 MG TABLET PO SCH ×2 (08:34→20:50)
[2021-05-16] MEDS: POLYETHYLENE GLYCOL POWDER 17 GM PACK PO SCH ×2 (08:56→20:48)
[2021-05-16] MEDS: DOCUSATE SODIUM 100 MG/10 ML UDCUP PO SCH ×2 (08:56→20:49)
[2021-05-16] MEDS: oxyCODONE/ACETAMINOPHEN 5-325 MG TABLET PO PRN (10:54)
[2021-05-16] MEDS: ENOXAPARIN 40 MG/0.4 ML SYRINGE SUBCUT SCH (16:13)
[2021-05-16] MEDS: amLODIPine 5 MG TABLET PO SCH (20:49)
[2021-05-16] MEDS: SIMVASTATIN 20 MG TABLET PO SCH (20:50)
[2021-05-17 04:57] LABS: Basophils % 0.1 % (0.0-0.8); Eosinophils # 0.2 10*3/uL (0.0-0.87); Eosinophils % 1.1 % (0.00-10.9); Hematocrit 29.2 VOL% (42.0-52.0); Immature Granulocytes Absolute 0.34 #; Lymphocytes # 0.6 10*3/uL (1.4-4.0); Lymphocytes % 3.4 % (21.2-54.2); Mean Corpuscular HGB Conc 30.8 GM/DL (32-36); Mean Corpuscular Volume 94.5 FL (87-102); Mean Platelet Volume 9.8 FL (9.6-12.0); Monocytes % 2.8 % (1.7-12.7); NRBC # 0.03 10*3/uL; Neutrophils % 90.6 % (38.7-73.9); Platelet Count 234 T/CUMM (130-400); Red Blood Count 3.09 MC/CUMM (3.8-5.5); Red Cell Distribution Width 15.1 % (9.3-17.3)
[2021-05-17 05:12] LABS: Calcium 7.9 MG/DL (8.5-10.1); Osmolality,Calculated 313.4 MOS/KG (273-304); Potassium 5.2 MMOL/L (3.5-5.1)
[2021-05-17 05:32] LABS: Band Neutrophils 1 % (0-10); Hypochromia 1+; Lymphocytes 2 % (20-55); Microcytosis 1+; Platelet Estimate Adequate; Segmented Neutrophils 95 % (50-85); Total Cells Counted 100
[2021-05-17] MEDS: LEVOTHYROXINE 125 MCG TABLET PO SCH (05:46)
[2021-05-17] MEDS: GABAPENTIN 300 MG CAPSULE PO SCH ×2 (08:39→20:15)
[2021-05-17] MEDS: CHOLECALCIFEROL 1,000 UNIT TABLET PO SCH (08:39)
[2021-05-17] MEDS: ASPIRIN EC 81 MG TABLET PO SCH (08:39)
[2021-05-17] MEDS: clonazePAM 0.5 MG TABLET PO SCH ×3 (08:40→20:15)
[2021-05-17] MEDS: PANTOPRAZOLE 40 MG TABLET PO SCH (08:40)
[2021-05-17] MEDS: LIDOCAINE 5% PATCH TRANSDERM SCH (08:40)
[2021-05-17] MEDS: CLOPIDOGREL 75 MG TABLET PO SCH (08:40)
[2021-05-17] MEDS: DEXAMETHASONE 4 MG TABLET PO SCH ×2 (08:40→20:15)
[2021-05-17] MEDS: ISOSORBIDE MONONITRATE 60 MG TABLET PO SCH (08:40)
[2021-05-17] MEDS: FERROUS SULFATE 325 MG TABLET PO SCH ×2 (08:40→16:25)
[2021-05-17] MEDS: oxyCODONE ER 20 MG TABLET PO SCH ×2 (08:41→20:16)
[2021-05-17] MEDS: POLYETHYLENE GLYCOL POWDER 17 GM PACK PO SCH ×3 (08:43→21:24)
[2021-05-17] MEDS: DOCUSATE SODIUM 100 MG/10 ML UDCUP PO SCH ×2 (08:43→20:16)
[2021-05-17] MEDS ORDERED: fentaNYL 75 MCG/HR PATCH TRANSDERM SCH (10:00)
[2021-05-17] MEDS: oxyCODONE/ACETAMINOPHEN 5-325 MG TABLET PO PRN (13:43)
[2021-05-17] MEDS: ENOXAPARIN 40 MG/0.4 ML SYRINGE SUBCUT SCH (16:25)
[2021-05-17] MEDS: amLODIPine 5 MG TABLET PO SCH (20:15)
[2021-05-17] MEDS: SIMVASTATIN 20 MG TABLET PO SCH (20:15)
[2021-05-18] MEDS: LEVOTHYROXINE 125 MCG TABLET PO SCH (06:33)
[2021-05-18 08:32] LABS: Basophils % 0.1 % (0.0-0.8); Eosinophils # 0.1 10*3/uL (0.0-0.87); Eosinophils % 0.5 % (0.00-10.9); Hemoglobin 8.7 GM/DL (14.0-18.0); Immature Granulocytes % 2.7 %; Immature Granulocytes Absolute 0.31 #; Lymphocytes # 0.7 10*3/uL (1.4-4.0); Mean Corpuscular HGB Conc 31.1 GM/DL (32-36); Mean Corpuscular Volume 95.2 FL (87-102); Mean Platelet Volume 9.3 FL (9.6-12.0); Monocytes % 4.4 % (1.7-12.7); NRBC # 0.02 10*3/uL; Neutrophils % 86.3 % (38.7-73.9); Platelet Count 195 T/CUMM (130-400); Red Blood Count 2.94 MC/CUMM (3.8-5.5); Red Cell Distribution Width 15.3 % (9.3-17.3); White Blood Count 11.6 T/CUMM (4-12)
[2021-05-18] MEDS: ISOSORBIDE MONONITRATE 60 MG TABLET PO SCH (08:32)
[2021-05-18] MEDS: CHOLECALCIFEROL 1,000 UNIT TABLET PO SCH (08:32)
[2021-05-18] MEDS: GABAPENTIN 300 MG CAPSULE PO SCH ×2 (08:32→20:09)
[2021-05-18] MEDS: PANTOPRAZOLE 40 MG TABLET PO SCH (08:33)
[2021-05-18] MEDS: DOCUSATE SODIUM 100 MG/10 ML UDCUP PO SCH ×2 (08:33→20:10)
[2021-05-18] MEDS: CLOPIDOGREL 75 MG TABLET PO SCH (08:33)
[2021-05-18] MEDS: ASPIRIN EC 81 MG TABLET PO SCH (08:33)
[2021-05-18] MEDS: clonazePAM 0.5 MG TABLET PO SCH ×3 (08:33→20:09)
[2021-05-18] MEDS: FERROUS SULFATE 325 MG TABLET PO SCH ×2 (08:33→16:09)
[2021-05-18] MEDS: DEXAMETHASONE 4 MG TABLET PO SCH ×2 (08:33→20:10)
[2021-05-18] MEDS: oxyCODONE ER 20 MG TABLET PO SCH ×2 (08:34→20:10)
[2021-05-18] MEDS: POLYETHYLENE GLYCOL POWDER 17 GM PACK PO SCH ×2 (08:35→20:10)
[2021-05-18] MEDS: LIDOCAINE 5% PATCH TRANSDERM SCH (08:35)
[2021-05-18 09:00] LABS: Calcium 8.2 MG/DL (8.5-10.1); Osmolality,Calculated 317.1 MOS/KG (273-304); Potassium 5.6 MMOL/L (3.5-5.1)
[2021-05-18] MEDS: ENOXAPARIN 40 MG/0.4 ML SYRINGE SUBCUT SCH (16:08)
[2021-05-18] MEDS: SIMVASTATIN 20 MG TABLET PO SCH (20:09)
[2021-05-18] MEDS: amLODIPine 5 MG TABLET PO SCH (20:09)
[2021-05-18] MEDS: oxyCODONE/ACETAMINOPHEN 5-325 MG TABLET PO PRN (22:41)
[2021-05-19] MEDS: LEVOTHYROXINE 125 MCG TABLET PO SCH (05:31)
[2021-05-19] MEDS: oxyCODONE/ACETAMINOPHEN 5-325 MG TABLET PO PRN ×2 (05:31→12:55)
[2021-05-19] MEDS: clonazePAM 0.5 MG TABLET PO SCH ×2 (09:21→15:31)
[2021-05-19] MEDS: FERROUS SULFATE 325 MG TABLET PO SCH (09:21)
[2021-05-19] MEDS: ISOSORBIDE MONONITRATE 60 MG TABLET PO SCH (09:21)
[2021-05-19] MEDS: CHOLECALCIFEROL 1,000 UNIT TABLET PO SCH (09:21)
[2021-05-19] MEDS: PANTOPRAZOLE 40 MG TABLET PO SCH (09:22)
[2021-05-19] MEDS: GABAPENTIN 300 MG CAPSULE PO SCH (09:22)
[2021-05-19] MEDS: ASPIRIN EC 81 MG TABLET PO SCH (09:22)
[2021-05-19] MEDS: oxyCODONE ER 20 MG TABLET PO SCH (09:22)
[2021-05-19] MEDS: CLOPIDOGREL 75 MG TABLET PO SCH (09:22)
[2021-05-19] MEDS: DEXAMETHASONE 4 MG TABLET PO SCH (09:22)
[2021-05-19] MEDS: POLYETHYLENE GLYCOL POWDER 17 GM PACK PO SCH (09:23)
[2021-05-19] MEDS: DOCUSATE SODIUM 100 MG/10 ML UDCUP PO SCH (09:23)
[2021-05-19] MEDS: LIDOCAINE 5% PATCH TRANSDERM SCH (09:23)
[2021-05-19 12:09] VITALS: BP 129/74
[2021-05-19] MEDS ORDERED: HYDROmorphone 2 MG/1 ML VIAL IM ONE (15:16)
== END 2021-05-19 15:42 | disposition hospice, home (50) | DRG 542 ==
LOC: EDSEX → N.ED 20:01 → N.EDINP 23:13 → SUATTDRO 23:13 → N.3E 23:47
PROVIDERS: ADMIT Internal Medicine; ATTEND Internal Medicine